=== PATIENT | male | born 1960 ===

== ENCOUNTER 2022-01-05 08:30 | Day surgery (SDC) | payer OTHER ==
[~2022-01-05 08:30] MED LIST: ALTACE10 MG PO; TAMS0.4C PO
== END 2022-01-05 14:35 | disposition home or self-care (01) ==
LOC: CIR.AMB 08:30
PROVIDERS: ATTEND Orthopaedic Surgery Hand Surgery
DX: G56.01 Carpal tunnel syndrome, right upper limb (principal); I10 Essential (primary) hypertension; G47.33 Obstructive sleep apnea (adult) (pediatric); Z99.89 Dependence on other enabling machines and devices